=== PATIENT | female | born 1980 | race Caucasian/White ===

== ENCOUNTER 2024-08-01 13:54 | Outpatient (RCR) | payer SELFPAY | END 2024-08-01 23:59 | disposition home or self-care (01) | LOC: RPT 13:54 | PROVIDERS: ATTENDING PHYSICIAN Orthopaedic Surgery | DX: M54.50 Low back pain, unspecified (principal); Z73.6 Limitation of activities due to disability; M62.81 Muscle weakness (generalized); M79.604 Pain in right leg | CPT/HCPCS: 97010; 97110; 97162; 97530 ==

== ENCOUNTER 2024-09-04 14:00 | Outpatient (RCR) | payer SELFPAY | END 2024-09-04 23:59 | disposition home or self-care (01) | LOC: RPT 14:00 | PROVIDERS: Orthopaedic Surgery; ATTENDING PHYSICIAN Pain Medicine Interventional Pain Medicine | DX: M54.50 Low back pain, unspecified (principal); Z73.6 Limitation of activities due to disability | CPT/HCPCS: 97010; 97110; 97140 ==